=== PATIENT | female | born 1955 | race Two or more races ===

== ENCOUNTER 2025-01-05 13:29 | Emergency (ER) | payer MEDICAID, SELFPAY ==
[2025-01-05 14:06] VITALS: BP 207/98; BP 212/97; PULSE 62; RESP 16; TEMP 36.9; O2SAT 95; BMI 31.4
--- NOTE | 2025-01-05 14:17 | XR_ITS ---
Examination: Abdomen sonogram, Limited Date and time of exam: January 05, 2025 1434 hours INDICATIONS: Right upper abdominal pain beginning 5 days ago Technique: Real-time guthrie scale transabdominal sonographic images of the upper abdomen obtained. Findings: Normal gallbladder Normal common bile duct 0.3 cm Pancreatic head 2.6 cm Liver 15.6 cm fatty infiltration smooth contour Normal hepatopedal portal venous flow Patent IVC IMPRESSION: Normal gallbladder Normal common bile duct Fatty liver
--- NOTE | 2025-01-05 14:18 | PD.EDRME ---
Rapid Medical Screening Exam RME Arrival date/time: 01/05/25 13:29 69-year-old female with a history of hyperlipidemia, hypertension presents to the emergency room with a chief complaint of 8 out of 10 epigastric pain that radiates to the right upper quadrant x 5 days I have greeted and performed a focused initial assessment of this patient. A comprehensive ED assessment and evaluation of the patient, analysis of all test results, and completion of the medical decision making process will be conducted by additional ED providers. Chief Complaint: Recheck/Abnormal Lab/Rx Time Seen by Provider: 01/05/25 13:55 Vital signs: Vital Signs Temperature 98.5 F 01/05/25 14:06 Pulse Rate 62 01/05/25 14:06 Respiratory Rate 16 01/05/25 14:06 Blood Pressure 212/97 H 01/05/25 14:06 Pulse Oximetry (%) 95 01/05/25 14:06 Oxygen Delivery Method Room Air 01/05/25 14:06 Vital signs reviewed by provider: Yes
[2025-01-05] MEDS: MG HYD/AL HYD/SIME (Maalox Reg) SUSP 30 ML UDC PO (14:32)
[2025-01-05] MEDS: HYDROcodone/APAP 5/325 TABLET 1 TAB PO (14:32)
[2025-01-05 14:33] VITALS: BP 195/93; PULSE 101
[2025-01-05] MEDS: ONDANSETRON ODT 4 MG TABRAP PO (14:33)
[2025-01-05] MEDS: cloNIDine HCL 0.1 MG TABLET PO (14:33)
[2025-01-05 14:51] LABS: Basophils % (Auto) 0 % (0-2.5); Eosinophils % (Auto) 1 % (0-10); Hematocrit 37.8 % (36.0-46.0); Hemoglobin 12.7 g/dL (12.0-16.0); Immature Granulocytes % (Auto) 2 % (0-0); Immature Granulocytes Auto 0.15 Thou/mm3 (0.00-0.00); Lymphocytes # (Auto) 1.6 Thou/mm3 (1.0-4.8); Lymphocytes % (Auto) 22 % (10-50); Mean Corpuscular HGB Conc 33.6 g/dl (31.0-37.0); Mean Corpuscular Hemoglobin 28.7 pg (25.0-35.0); Mean Corpuscular Volume 86 fL (80-100); Monocytes # (Auto) 0.4 Thou/mm3 (0.0-0.8); Monocytes % (Auto) 5 % (0-12); Neutrophils # (Auto) 5.1 Thou/mm3 (1.8-7.7); Neutrophils % (Auto) 70 % (37-80); Nucleated Red Blood Cell % 0 /100 WBC (0); Platelet Count 216 Thou/mm3 (140-440); RDW Standard Deviation 42.5 fL (36.4-46.3); Red Blood Count 4.42 Miln/mm3 (4.00-5.20); White Blood Count 7.2 Thou/mm3 (3.6-11.0)
[2025-01-05 14:59] LABS: Collection Type, Urine Clean Catch
[2025-01-05 15:08] LABS: Alanine Aminotransferase 20 U/L (10-49); Albumin, Serum 4.2 gm/dL (3.4-4.8); Albumin/Globulin Ratio 1.8 (1.2-2.2); Alkaline Phosphatase 90 U/L (46-116); Anion Gap 12 (7-16); BUN/Creatinine Ratio 23 Ratio (12-20); Bilirubin,Total 0.6 mg/dL (0.3-1.2); Blood Urea Nitrogen 14 mg/dL (9-23); Calcium 8.9 mg/dL (8.3-10.6); Calcium (Corrected) 8.9 mg/dL (8.5-10.1); Carbon Dioxide 26.5 mMol/L (20.0-31.0); Chloride 104 mMol/L (98-107); Creatinine (Component) 0.6 mg/dL (0.6-1.3); Globulin 2.4 gm/dL (2.3-3.5); Glucose 132 mg/dL (74-106); Lipase 34 U/L (12-53); Osmolality,Calculated 285 (275-295); Potassium 4.1 mMol/L (3.4-5.1); Sodium 142 mMol/L (136-145); Total Protein 6.6 gm/dL (5.7-8.2); eGFR > 60 See Note
[2025-01-05 15:13] LABS: Bilirubin,Urine Negative (Negative); Blood,Urine Negative (Negative); Clarity,Urine Clear (Clear/Hazy); Color,Urine Lt-Yellow (Lt Yel-Yel); Glucose, Urine Negative (Negative); Ketones,Urine Negative (Negative); Leukocyte Esterase,Urine Negative (Negative); Nitrite,Urine Negative (Negative); Protein,Urine Negative (Neg - Trace); RBC,Urine 6 /hpf (0-3); Specific Gravity,Urine 1.024 (1.001-1.035); Squamous Epithelial Cell,Urine 5 /hpf (0-5); Urobilinogen,Urine Negative mg/dL (0.0-1.0); WBC,Urine 4 /hpf (0-5)
--- NOTE | 2025-01-05 16:59 | PD.EDABDPN ---
ED Abdominal Pain RME/HPI General Chief Complaint: Recheck/Abnormal Lab/Rx Stated complaint: HIGH BP Time seen by provider: 01/05/25 13:55 Arrival date/time: 01/05/25 13:29 69-year-old female with a history of hyperlipidemia, hypertension presents to the emergency room with a chief complaint of 8 out of 10 epigastric pain that radiates to the right upper quadrant x 5 days Source: patient Mode of arrival: ambulatory Limitations: no limitations RME / HPI RME / HPI narrative: 01/05/25 13:29 69-year-old female with a history of hyperlipidemia, hypertension presents to the emergency room with a chief complaint of 8 out of 10 epigastric pain that radiates to the right upper quadrant x 5 days I have greeted and performed a focused initial assessment of this patient. A comprehensive ED assessment and evaluation of the patient, analysis of all test results, and completion of the medical decision making process will be conducted by additional ED providers. Related Data Home Medications ?Medication ?Instructions ?Recorded ?Confirmed atorvastatin 80 mg tablet 80 mg PO HS 01/05/22 09/18/22 carvedilol 6.25 mg tablet 2 tab PO BID 01/05/22 09/18/22 Previous Rx's ?Medication ?Instructions ?Recorded lisinopril 10 mg tablet 10 mg PO QDAY #30 tabs 09/23/22 Allergies Allergy/AdvReac Type Severity Reaction Status Date / Time No Known Allergies Allergy Verified 01/05/25 13:34 Review of Systems Review of Systems Systems Reviewed: All systems reviewed, normal except as documented Constitutional Constitutional: Reports system reviewed and no additional complaints, except as documented, Denies fatigue, Denies fever(s), Denies headache(s) and Denies weakness Eyes Eyes: Reports system reviewed and no additional complaints, except as documented, Denies blurry vision and Denies change in vision ENT Ears, Nose, Mouth, and Throat: Reports system reviewed and no additional complaints, except as documented, Denies otalgia, Denies headache(s), Denies nasal congestion, Denies throat swelling and Denies vertigo Cardiovascular Cardiovascular: Reports system reviewed and no additional complaints, except as documented, Denies chest pain, Denies dyspnea and Denies dyspnea on exertion Respiratory Respiratory: Reports system reviewed and no additional complaints, except as documented, Denies chest congestion, Denies cough, Denies dyspnea, Denies dyspnea on exertion and Denies wheezing Gastrointestinal Gastrointestinal: Reports system reviewed and no additional complaints, except as documented, Denies abdominal pain, Denies cramping, Denies nausea and Denies vomiting Genitourinary Genitourinary: Reports system reviewed and no additional complaints, except as documented Musculoskeletal Musculoskeletal: Reports system reviewed and no additional complaints, except as documented and Denies back pain Integumentary/Breasts Skin/Breast: Reports system reviewed and no additional complaints, except as documented and Denies wounds Neurologic Neurologic: Reports system reviewed and no additional complaints, except as documented, Denies confusion, Denies headache(s), Denies lack of coordination, Denies vertigo and Denies weakness Psychiatric Psychiatric: Reports system reviewed and no additional complaints, except as documented, Denies anxiety, Denies confusion, Denies depression, Denies paranoia, Denies suicidal ideation and Denies tactile hallucinations Endocrine Endocrine: Reports system reviewed and no additional complaints, except as documented and Denies fatigue Hematologic/Lymphatic Hematologic/Lymphatic: Reports system reviewed and no additional complaints, except as documented and Denies lymphadenopathy Allergic/Immunologic Allergic/Immunologic: Reports system reviewed and no additional complaints, except as documented, Denies throat swelling, Denies urticaria and Denies wheezing ED Exam General Limitations: Present no limitations General appearance: Present alert and in no apparent distress Head Head exam: Present atraumatic Eye Eye exam: Present normal appearance, PERRL and EOMI ENT ENT exam: Present normal exam, normal oropharynx and mucous membranes moist Neck Neck exam: Present normal inspection, full ROM and trachea midline Chest Chest inspection: Present normal inspection and symmetric chest wall rise Respiratory Respiratory exam: Present normal lung sounds bilaterally Cardiovascular Cardiovascular exam: Present regular rate, normal rhythm and normal heart sounds Abdominal Exam Abdominal exam: Present soft, tenderness and normal bowel sounds Abdominal tenderness: Present RUQ and mild Extremities Exam Extremities exam: Present normal inspection and full ROM Back Exam Back exam: Present normal inspection and full ROM Neurological Exam Neurological exam: Present alert, oriented X3 and CN II-XII intact Psychiatric Psychiatric exam: Present normal affect and normal mood Skin Skin exam: Present warm, dry, intact and normal color Course Quality Measures none Orders Category Date Time Status US gall bladder Stat Exams 01/05/25 14:17 Completed CBC Stat Lab 01/05/25 14:26 Completed CMP [Comprehensive Metabolic Panel] Stat Lab 01/05/25 14:26 Completed Lipase Stat Lab 01/05/25 14:26 Completed UA [Urinalysis] Stat Lab 01/05/25 14:49 Completed Urine Culture Stat Lab 01/05/25 14:49 Received HYDROcodone*/APAP 5/325 [[place] 5/325] Med 01/05/25 14:17 Discontinued 1 tab PO X1 ONE Ondansetron Odt [Zofran Odt] Med 01/05/25 14:17 Discontinued 4 mg PO X1 ONE cloNIDine HCL [Catapres] Med 01/05/25 14:18 Discontinued 0.1 mg PO X1 ONE mg Hyd/Al Hyd/Inder Susp [Maalox Susp] Med 01/05/25 14:17 Discontinued 30 ml PO X1 ONE Vital Signs Vital signs: Vital Signs Temperature 98.5 F 01/05/25 14:06 Pulse Rate 62 01/05/25 14:06 Respiratory Rate 16 01/05/25 14:06 Blood Pressure 212/97 H 01/05/25 14:06 Pulse Oximetry (%) 95 01/05/25 14:06 Oxygen Delivery Method Room Air 01/05/25 14:06 O2 saturation 95% within normal limits Abdominal Pain MDM MDM Narrative MDM Narrative:: 69-year-old female with a history of hyperlipidemia, hypertension presents to the emergency room with a chief complaint of 8 out of 10 epigastric pain that radiates to the right upper quadrant x 5 days Hemodynamically stable no apparent distress Physical examination shows right upper quadrant abdominal tenderness with a negative Zavala sign. CBC CMP are within normal limits there is negative leukocytosis Ultrasound of the gallbladder was completed and was negative for any cholelithiasis or cholecystitis. Patient was discharged and educated to follow-up with primary care provider in the next 24 to 48 hours and return to the emergency room for any evidence of worsening signs or symptoms Patient data External records reviewed:: [facility] previous records Clinical information provided by:: patient Social determinants that could affect healthcare access:: none Patient has the following chronic illnesses:: Hypertension How is presenting disease/condition affected by chronic disease/condition?: uneffected by Evaluation data The following diagnostics were reviewed and interpreted by me:: lab results and radiology exam(s) Lab and/or radiology exams considered but not ordered:: Labs and radiology exams considered and ordered Interpretation Summary: Ultrasound gallbladder-Findings: Normal gallbladder Normal common bile duct 0.3 cm Pancreatic head 2.6 cm Liver 15.6 cm fatty infiltration smooth contour Normal hepatopedal portal venous flow Patent IVC IMPRESSION: Normal gallbladder Normal common bile duct Fatty liver Medications / Prescriptions Medications or Prescriptions considered but not ordered:: Medication given Medication administrations:: Medication Administration History Discontinued Medications Hydrocodone Bitart/Acetaminophen (Hydrocodone/Apap 5/325 Tablet) 1 tab PO X1 ONE Stop: 01/05/25 14:18 Last Admin: 01/05/25 14:32 Dose: 1 tab Documented By: YANDY Al Hydrox/Mg Hydrox/Simethicone (Mg Hyd/Al Hyd/Inder (Maalox Reg) Susp 30 Ml Udc) 30 ml PO X1 ONE Stop: 01/05/25 14:18 Last Admin: 01/05/25 14:32 Dose: 30 ml Documented By: YANDY Clonidine (Clonidine Hcl 0.1 Mg Tablet) 0.1 mg PO X1 ONE Stop: 01/05/25 14:19 Last Admin: 01/05/25 14:33 Dose: 0.1 mg Documented By: YANDY Ondansetron HCl (Ondansetron Odt 4 Mg Tabrap) 4 mg PO X1 ONE; Protocol Stop: 01/05/25 14:18 Last Admin: 01/05/25 14:33 Dose: 4 mg Documented By: YANDY Medication given Consultations Consultation(s) initiated? (list below): No Diagnosis Differential diagnosis abdominal pain: abdominal pain, gastroenteritis and other (Cholelithiasis/cholecystitis) Most likely diagnosis given after review of the tests above:: Gastroenteritis Admission Indicated Admission indicated?: not indicated Admission Request Was there a request for admission?: No Disposition Plan Disposition Plan: Discharge Discharge Attestation Discharge Attestation: The patient and all family members were given an opportunity to ask questions and understood the discharge instructions. Discharge instructions specifically effects, indications for sooner follow up or return to the emergency department, and the expected course of current diagnosis. Patient condition: Stable Discharge Plan Plan Patient Disposition: HOME (Self Care) Discharge Disposition comment: Stable Prescriptions/Referrals Prescriptions/Med Rec: No Action carvedilol 6.25 mg tablet 2 tab PO BID Patient Comments: TAKE 2 TABLETS BY MOUTH TWICE DAILY atorvastatin 80 mg tablet 80 mg PO HS Patient Comments: TAKE 1 TABLET BY MOUTH EVERY DAY lisinopril 10 mg tablet 10 mg PO QDAY Qty: 30 0RF Referrals: No Primary/Family,Physician [Primary Care Provider] - In 1 week Problem List Clinical Impression: Gastroenteritis Patient/Caregiver Discharge Instructions Education Materials: ED Gastroenteritis, Noninfectious Additional Instructions: Por favor, consulte con vega m?dico de cabecera en las pr?ximas 24 a 48 horas. Vega ecograf?a de ves?cula biliar se encontr? dentro de los l?mites normales. Vega an?lisis de bhupendra fue negativo para cualquier hallazgo tyler. Ante cualquier evidencia de empeoramiento de los signos o s?ntomas, acuda a urgencias de inmediato. Print Language: Kinyarwanda Stand Alone Forms: Carissa Award Info., Patient Portal Info Letter PA/COMMUNITY SERVICE COORDINATOR Supervising Physician PA/COMMUNITY SERVICE COORDINATOR Supervising Physician: Dr. Dunaway
[2025-01-05 18:40] VITALS: BP 138/72; PULSE 78; RESP 16; TEMP 36.6; O2SAT 99
== END 2025-01-05 18:41 | disposition home or self-care (01) ==
PROVIDERS: Nurse Practitioner Family; Emergency Provider Emergency Medicine
DX: K52.9 Noninfective gastroenteritis and colitis, unspecified (principal); K76.0 Fatty (change of) liver, not elsewhere classified
CPT/HCPCS: 36415; 76705; 80053; 81001; 83690; 85025; 87086; 99284; Q0162; A9270

== ENCOUNTER 2025-05-29 12:48 | Emergency (ER) | payer MEDICAID, SELFPAY ==
--- NOTE | 2025-05-29 12:51 | XR_ITS ---
EXAMINATION: AP chest single view TECHNIQUE: AP portable semiupright chest single view Date and time: May 29, 2025, 1313 hours, comparison January 23, 2020 INDICATIONS: Syncope today. FINDINGS: Accentuation of basilar bronchovascular markings. Normal heart size No lobar pneumonia or pulmonary edema Prominent osteopenia IMPRESSION: No aspiration pneumonia Basilar bronchitis pattern
--- NOTE | 2025-05-29 12:51 | EKG_ITS ---
[facility] (Formerly [facility]) Test Date: 2025-05-29 Pat Name: ORIN PINEDA Department: Room: - Gender: Female Medical Office Scheduler: : 1955 Requested By: Servando Krishnan Order Number: [id number] Reading MD: Servando Krishnan Measurements Intervals [place] Rate: 59 P: 37 AR: 187 QRS: 2 QRSD: 111 T: 42 QT: 433 QTc: 431 Interpretive Statements SINUS BRADYCARDIA MODERATE INTRAVENTRICULAR CONDUCTION DELAY [110+ ms QRS DURATION] Compared to ECG 10/21/2023 15:05:28 Intraventricular conduction delay now present /store/S0/[id number]/ecg/[id number].pdf
--- NOTE | 2025-05-29 12:51 | PD.EDADULT ---
ED General RME/HPI General Chief complaint: Syncope / Near Syncope Stated complaint: SYNCOPAL EPISODE Time Seen by Provider: 05/29/25 12:50 Arrival date/time: 05/29/25 12:48 CC: Syncope and collapse HPI patient presents to the ER via EMS who state the patient had a loss of consciousness that lasted seconds . The patient has a history of hypertension she is awake alert oriented stating that she feels very weak and dizzy. The patient is somewhat pale but denies any specific pain. Related Data Home Medications ?Medication ?Instructions ?Recorded ?Confirmed atorvastatin 80 mg tablet 80 mg PO HS 01/05/22 09/18/22 carvedilol 6.25 mg tablet 2 tab PO BID 01/05/22 09/18/22 Previous Rx's ?Medication ?Instructions ?Recorded lisinopril 10 mg tablet 10 mg PO QDAY #30 tabs 09/23/22 Allergies Allergy/AdvReac Type Severity Reaction Status Date / Time No Known Allergies Allergy Verified 05/29/25 12:53 Review of Systems Review of Systems Narrative Review of Systems: GEN: No fever, no chills, no weight loss EYES: No discharge, no visual changes, no pain HEENT: No ear pain, no congestion, no sore throat PULM: No shortness of breath, no cough, no congestion CV: No chest pain, no dyspnea on exertion, no palpitations GI: No nausea, no vomiting, no diarrhea, no pain, no constipation : No frequency, no urgency, no dysuria MUSC/SKEL: No joint pain, no back pain SKIN: No rash PSYCH: No hallucinations, no depression HEME/LYMPH: No easy bleeding or bruising tendencies NEURO: No weakness, no headache, + dizziness Past Medical History Past Medical History NEUROLOGIC: Negative Neurological Disorders CARDIAC: Positive Cardiac Disorders, Hypercholesterolemia and Hypertension; Negative Congestive Heart Failure RESPIRATORY: Negative Chronic Obstructive Pulmonary Disease (COPD) or Asthma GASTROINTESTINAL: Negative Gastrointestinal Disorders GENITOURINARY: Negative Genitourinary Disorders or Renal Disease MUSCULOSKELETAL: Positive Musculoskeletal Disorders and Arthritis ENDOCRINE: Positive Diabetes Mellitus Type 2; Negative Diabetes Mellitus Type 1 HEMATOLOGIC: Negative Sickle Cell Disease Family History FAMILY HISTORY: Negative Family Cardiac Disorders Surgical History SURGICAL: Negative Cardiac Surgery, Abdominal Surgery or Joint Replacement Social History SMOKING STATUS: Never smoker SUBSTANCE USE: does not use ED Exam Narrative Physical exam: [General: Does not appear in any acute distress Head normocephalic HEENT: Eyes pupils are PERRLA EOMs intact mouth pink moist membranes uvula is midline swallow symmetrical phonation is normal all other subsystems of HEENT are within acceptable limits Neck is supple nontender no JVD no edema Chest equal chest rise nontender to palpation Respiratory: Clear to auscultation no wheezes crackles or rubs CV: Rate rhythm is regular no murmurs rubs or clicks Abdomen is soft nontender no masses positive bowel sounds all 4 quadrants Back: No CVA tenderness no spinous process tenderness from cervical spine thoracic and lumbar spine Skin: Pale, intact no petechiae rash induration ulceration or crepitus Extremities: Moving all extremity against resistance cap refill less than 2 seconds neurosensory intact Neuro: Awake alert oriented x2, person and place, Glascow coma 15 no focal deficits] Course Course Course Narrative: Reevaluation of this patient at 1638 the patient is awake alert oriented, there is no acute finding requires emergent or meet intervention this time comfortable discharging patient home with a syncopal episode patient is to follow-up with her primary care doctor and rest for the next couple of days. Quality Measures none Orders Category Date Time Status EKG (ED ONLY) *Do not use* NOW Care 05/29/25 12:51 Completed EKG (ED Only) Stat Exams 05/29/25 12:51 Draft XR chest 1V Stat Exams 05/29/25 12:51 Completed B-Type Natriuretic Peptide Stat Lab 05/29/25 14:50 Completed CBC Stat Lab 05/29/25 14:50 Completed Comprehensive Metabolic Panel Stat Lab 05/29/25 14:50 Completed Drug Screen,Urine Stat Lab 05/29/25 15:43 Completed LDH (Lactate Dehydrogenase) Stat Lab 05/29/25 14:50 Completed Magnesium Stat Lab 05/29/25 14:50 Completed Partial Thromboplastin Time Stat Lab 05/29/25 14:50 Completed Prothrombin Time with INR Stat Lab 05/29/25 14:50 Completed Troponin I Stat Lab 05/29/25 14:50 Completed Urinalysis, C/S if Indicated Stat Lab 05/29/25 15:43 Completed Vital Signs Vital signs: Vital Signs Temperature 97.5 F 05/29/25 12:54 Pulse Rate 63 05/29/25 12:54 Respiratory Rate 19 05/29/25 12:54 Blood Pressure 138/95 H 05/29/25 12:54 Pulse Oximetry (%) 97 05/29/25 12:54 Oxygen Delivery Method Room Air 05/29/25 12:54 Discharge Plan Plan Patient Disposition: HOME (Self Care) Patient condition on transfer: Stable Prescriptions/Referrals Prescriptions/Med Rec: No Action carvedilol 6.25 mg tablet 2 tab PO BID Patient Comments: TAKE 2 TABLETS BY MOUTH TWICE DAILY atorvastatin 80 mg tablet 80 mg PO HS Patient Comments: TAKE 1 TABLET BY MOUTH EVERY DAY lisinopril 10 mg tablet 10 mg PO QDAY Qty: 30 0RF Referrals: Allan Ramirez MD [Primary Care Provider, Family Practice] - In 1 week Problem List Clinical Impression: Syncope and collapse Patient/Caregiver Discharge Instructions Education Materials: Causes of Syncope, Diagnosing Syncope Additional Instructions: Rest drink plenty of fluids if there is a worsening of symptoms return the emergency room immediately for further evaluation. Print Language: Bulgarian Stand Alone Forms: Carissa Award Info., Work/School Release, Patient Portal Info Letter PA/EFFERVESCENT SALTS COMPOUNDER Supervising Physician PA/EFFERVESCENT SALTS COMPOUNDER Supervising Physician: Servando Schroeder ENP [facility] Clinical Information Provided by: patient and EMS Medical Records reviewed [facility] and EMS Meds/Rx considered, not ordered None Labs/Rad/Tests considered, not ordered None Chronic Illness/Social Conditions Explain: Hypertension EKG Interpretation EKG #1: EKG Interpretation: EKG performed at 1323 shows a ventricular rate of 5 9 MI interval 187 QRS of 111 QTc of 432 this is sinus bradycardia. Labs Labs: interpreted by co Lab(s) Interpretation(s): CBC showed no acute leukocytosis anemia thrombocytopenia Coags within acceptable limits CMP shows a potassium of 3.1 glucose of 204 no other electrolyte imbalances renal impairment transaminitis or T. bili elevation Troponin is unremarkable BMP is unremarkable Urine is negative UDS is negative Imaging Imaging interpretation: interpreted by co Imaging Interpretation(s): Chest x-ray is negative for any acute finding requires emergent or immediate intervention.
[2025-05-29 12:53] VITALS: PULSE 64
[2025-05-29 12:54] VITALS: BP 138/95; PULSE 63; RESP 19; TEMP 36.4; O2SAT 97
--- NOTE | 2025-05-29 13:13 | PC.NURSE ---
BIBA; PER EMS, PT WAS IN TO SEE GOGGLES ASSEMBLER; UNABLE TO SEE MD. PT SITTING AND THEN STARTED SHAKING AND VOMITING, LASTING ABOUT 30 SECS; GCS 15. VS STABLE. EKG NSR. PMH UNSPECIFIED CARDIAC ISSUES, PREDIABETIC, HIGH BP, CVA A COUPLE YEARS AGO.
[2025-05-29 13:26] VITALS: BP 157/109; PULSE 58; RESP 12; TEMP 36.5; O2SAT 97; BMI 29.9
[2025-05-29 14:00] VITALS: BP 155/83; PULSE 63; RESP 17; TEMP 36.4; O2SAT 97
[2025-05-29 15:06] LABS: Basophils # (Auto) 0.0 Thou/mm3 (0.0-0.2); Basophils % (Auto) 1 % (0-2.5); Eosinophils # (Auto) 0.2 Thou/mm3 (0.0-0.5); Eosinophils % (Auto) 2 % (0-10); Hematocrit 35.9 % (36.0-46.0); Hemoglobin 12.6 g/dL (12.0-16.0); Immature Granulocytes Auto 0.05 Thou/mm3 (0.00-0.00); Lymphocytes # (Auto) 1.9 Thou/mm3 (1.0-4.8); Lymphocytes % (Auto) 23 % (10-50); Mean Corpuscular HGB Conc 35.1 g/dl (31.0-37.0); Mean Corpuscular Hemoglobin 29.2 pg (25.0-35.0); Mean Corpuscular Volume 83 fL (80-100); Monocytes # (Auto) 0.5 Thou/mm3 (0.0-0.8); Monocytes % (Auto) 6 % (0-12); Neutrophils # (Auto) 5.5 Thou/mm3 (1.8-7.7); Neutrophils % (Auto) 67 % (37-80); Nucleated Red Blood Cell # 0.00 Thou/mm3 (0.00-0.00); Nucleated Red Blood Cell % 0 /100 WBC (0); Platelet Count 212 Thou/mm3 (140-440); RDW Standard Deviation 41.0 fL (36.4-46.3); Red Blood Count 4.31 Miln/mm3 (4.00-5.20); White Blood Count 8.2 Thou/mm3 (3.6-11.0)
[2025-05-29 15:20] LABS: INR 1.0 (0.9-1.3); Partial Thromboplastin Time 23.1 Seconds (22.0-36.0); Prothrombin Time 10.5 Seconds (9.0-12.2)
[2025-05-29 15:24] LABS: B-Type Natriuretic Peptide < 20 pg/mL (0-100)
[2025-05-29 15:25] LABS: Alanine Aminotransferase 45 U/L (10-49); Albumin, Serum 4.4 gm/dL (3.4-4.8); Albumin/Globulin Ratio 1.9 (1.2-2.2); Alkaline Phosphatase 87 U/L (46-116); Anion Gap 12 (7-16); Aspartate Amino Transferase 35 U/L (0-34); BUN/Creatinine Ratio 19 Ratio (12-20); Bilirubin,Total 1.0 mg/dL (0.3-1.2); Blood Urea Nitrogen 15 mg/dL (9-23); Calcium 9.6 mg/dL (8.3-10.6); Calcium (Corrected) 9.6 mg/dL (8.5-10.1); Carbon Dioxide 28.4 mMol/L (20.0-31.0); Chloride 100 mMol/L (98-107); Creatinine (Component) 0.8 mg/dL (0.6-1.3); Estimated Creatinine Clearance 51.5 mL/min (>60); Globulin 2.3 gm/dL (2.3-3.5); Glucose 204 mg/dL (74-106); LDH (Lactate Dehydrogenase) 217 U/L (120-246); Magnesium 2.0 mg/dL (1.6-2.6); Osmolality,Calculated 286 (275-295); Potassium 3.1 mMol/L (3.4-5.1); Sodium 140 mMol/L (136-145); Total Protein 6.7 gm/dL (5.7-8.2); Troponin I < 0.002 ng/mL (0.0-0.045); eGFR > 60 See Note
[2025-05-29 15:54] LABS: Collection Type, Urine Clean Catch
[2025-05-29 16:04] LABS: Bilirubin,Urine Negative (Negative); Blood,Urine Negative (Negative); Clarity,Urine Clear (Clear/Hazy); Color,Urine Lt-Yellow (Lt Yel-Yel); Culture Indicated,Urine Not Indicated; Glucose, Urine Negative (Negative); Hyaline Casts,Urine < 1 /hpf (0-1); Ketones,Urine Negative (Negative); Leukocyte Esterase,Urine Negative (Negative); Nitrite,Urine Negative (Negative); PH,Urine 6.5 (5.0-7.0); Protein,Urine Negative (Neg - Trace); RBC,Urine 5 /hpf (0-3); Specific Gravity,Urine 1.019 (1.001-1.035); Squamous Epithelial Cell,Urine 2 /hpf (0-5); Urobilinogen,Urine 2.0 mg/dL (0.0-1.0); WBC,Urine 4 /hpf (0-5)
[2025-05-29 16:09] LABS: Amphetamine/Methamp Scrn,U Negative (Negative); Barbiturate Screen,Urine Negative (Negative); Benzodiazepines Screen,Urine Negative (Negative); Benzoylecgonine Screen, Ur Negative (Negative); Fentanyl Screen,Urine Negative (Negative); Opiate Screen,Urine Negative (Negative); THC Screen,Urine Negative (Negative)
[2025-05-29 16:36] VITALS: BP 174/82; PULSE 63; RESP 17; TEMP 36.9; O2SAT 94
== END 2025-05-29 16:49 | disposition home or self-care (01) ==
PROVIDERS: Registered Nurse General Practice; Emergency Provider Family Medicine; PCP Family Medicine
DX: R55 Syncope and collapse (principal); I10 Essential (primary) hypertension
CPT/HCPCS: 36415; 71045; 80053; 80307; 81001; 83615; 83735; 83880; 84484; 85025; 85610; 85730; 93005; 99283